=== PATIENT | female | born 1985 | race Caucasian/White ===

== ENCOUNTER → 2020-06-03 15:39 | Outpatient (BNVA) | payer SELFPAY | PROVIDERS: Visit Provider Family Medicine Adult Medicine | DX: M54.9 Dorsalgia, unspecified (principal) | CPT/HCPCS: 81000 ==

== ENCOUNTER 2020-10-10 09:38 | Outpatient (CLI) | payer OTHER, SELFPAY ==
[2020-10-10 10:01] VITALS: BP 142/92; BP 157/97; PULSE 70; PULSE 87; RESP 16; RESP 20; TEMP 36.7; TEMP 36.8; O2SAT 96; O2SAT 98; BMI 32.1
[2020-10-10 10:18] VITALS: BP 130/87; PULSE 73; RESP 18; O2SAT 95
[2020-10-10 11:09] VITALS: BP 142/92; PULSE 70; RESP 20; TEMP 36.8; O2SAT 96
== END 2020-10-10 09:39 | disposition home or self-care (01) ==
LOC: OPS 09:40
PROVIDERS: Visit Provider Family Medicine
DX: U07.1 COVID-19 (principal)
CPT/HCPCS: 96365

== ENCOUNTER → 2020-10-20 15:14 | Outpatient (BNVA) | payer OTHER, SELFPAY | PROVIDERS: Visit Provider Family Medicine | DX: D51.0 Vitamin B12 deficiency anemia due to intrinsic factor deficiency (principal); Z20.5 Contact with and (suspected) exposure to viral hepatitis; Z87.898 Personal history of other specified conditions; Z76.89 Persons encountering health services in other specified circumstances; I10 Essential (primary) hypertension | CPT/HCPCS: 80053; 80061; 84443; 85025; 86803 ==

== ENCOUNTER → 2021-12-10 12:17 | Outpatient (BNVA) | payer BC, MEDICAID, SELFPAY | PROVIDERS: PCP Family Medicine; Visit Provider Psychiatry & Neurology Neurology | DX: F43.20 Adjustment disorder, unspecified (principal); F41.1 Generalized anxiety disorder | CPT/HCPCS: 80061; 83036 ==